=== PATIENT | female | born 1950 | race American Indian/Alaskan Native ===

== ENCOUNTER 2019-01-16 10:09 | Emergency (ER) | payer MEDICARE ==
[2019-01-16 10:19] VITALS: BP 167/87
[2019-01-16] MEDS ORDERED: IBUPROFEN 400 MG TAB PO ONE (10:50)
[2019-01-16] MEDS ORDERED: ACETAMINOPHEN 500 MG TAB PO ONE (10:50)
--- NOTE | 2019-01-16 11:26 | Emergency Department Report ---
ED General Adult HPI - General Chief complaint: Extremity Injury, Lower Stated complaint: LFT LEG PAIN Time Seen by Provider: 01/16/19 10:35 Source: patient, EMS Mode of arrival: Ambulatory Limitations: No Limitations - History of Present Illness Initial comments: She is a 68-year-old female with poor hygiene who presents with left knee pain after a piece of her ceiling fell PATIENT STATES THE PAIN IS A 4 OUT OF 10 AN ACHY TYPE OF PAIN STANDING ON IT MAKES IT WORSE NOTHING MAKES IT BETTER. PATIENT STATES THAT SHE IS NOT HAVING ANY OTHER SYMPTOMS OR COMPLAINTS. Severity scale (0 -10): 4 - Related Data Previous Rx's Medication Instructions Recorded Last Taken Type Acetaminophen [Acetaminophen TAB] 500 mg PO Q6HR #30 tablet 01/16/19 Unknown Rx Allergies Allergy/AdvReac Type Severity Reaction Status Date / Time No Known Allergies Allergy Unverified 01/16/19 10:10 ED Review of Systems ROS: Stated complaint: LFT LEG PAIN Other details as noted in HPI Constitutional: denies: chills, fever Eyes: denies: eye pain, eye discharge, vision change ENT: denies: ear pain, throat pain Respiratory: denies: cough, shortness of breath, wheezing Cardiovascular: denies: chest pain, palpitations Endocrine: no symptoms reported Gastrointestinal: denies: abdominal pain, nausea, diarrhea Genitourinary: denies: urgency, dysuria, discharge Musculoskeletal: denies: back pain, joint swelling, arthralgia Skin: denies: rash, lesions Neurological: denies: headache, weakness, paresthesias Psychiatric: denies: anxiety, depression Hematological/Lymphatic: denies: easy bleeding, easy bruising ED Past Medical Hx - Past Medical History Hx Hypertension: Yes Hx Diabetes: Yes - Surgical History Past Surgical History?: No - Social History Smoking Status: Heavy Tobacco Smoker Substance Use Type: Alcohol - Medications Home Medications: Home Medications Medication Instructions Recorded Confirmed Last Taken Type Acetaminophen [Acetaminophen TAB] 500 mg PO Q6HR #30 tablet 01/16/19 Unknown Rx ED Physical Exam - General Limitations: No Limitations General appearance: alert, in no apparent distress - Head Head exam: Present: atraumatic, normocephalic - Eye Eye exam: Present: normal appearance - ENT ENT exam: Present: mucous membranes moist - Neck Neck exam: Present: normal inspection - Respiratory Respiratory exam: Present: normal lung sounds bilaterally. Absent: respiratory distress - Cardiovascular Cardiovascular Exam: Present: regular rate, normal rhythm. Absent: systolic murmur, diastolic murmur, rubs, gallop - GI/Abdominal GI/Abdominal exam: Present: soft, normal bowel sounds - Extremities Exam Extremities exam: Present: normal inspection - Back Exam Back exam: Present: normal inspection - Neurological Exam Neurological exam: Present: alert, oriented X3 - Psychiatric Psychiatric exam: Present: normal affect, normal mood - Skin Skin exam: Present: warm, dry, intact, normal color. Absent: rash ED Course Vital Signs 01/16/19 10:14 Temperature 97.5 F L Pulse Rate 95 H Respiratory 18 Rate Blood Pressure 167/87 O2 Sat by Pulse 96 Oximetry ED Medical Decision Making - Medical Decision Making Chief medical diagnosis: Knee contusion Differential medical diagnosis: Knee fracture, patella fracture, I will get x-ray to me and give patient Tylenol and Motrin Critical care attestation.: If time is entered above; I have spent that time in minutes in the direct care of this critically ill patient, excluding procedure time. ED Disposition Clinical Impression: Knee pain, left Qualifiers: Chronicity: acute Qualified Code(s): M25.562 - Pain in left knee Disposition: DC-01 TO HOME OR SELFCARE Is pt being admited?: No Does the pt Need Aspirin: No Instructions: Arthralgia (ED) Prescriptions: Acetaminophen [Acetaminophen TAB] 500 mg PO Q6HR #30 tablet Referrals: PRIMARY CARE, [Primary Care Provider] - 3-5 Days
--- NOTE | 2019-01-16 14:32 | XRay Report ---
LEFT KNEE, 3 VIEWS INDICATION / CLINICAL INFORMATION: knee pain. COMPARISON: None available. FINDINGS: No fracture or dislocation noted. There does appear to be some mild prepatellar soft tissue swelling. Mild degenerative changes are present. The bones are slightly demineralized. IMPRESSION: No fracture or dislocation. Mild prepatellar soft tissue edema. Signer Name: Farnaz Keenan MD Signed: 01/16/2019 2:27 PM Workstation Name: [id number]
== END 2019-01-16 13:00 | disposition home or self-care (01) ==
LOC: ED 10:09
DX: M25.562 Pain in left knee (principal); I10 Essential (primary) hypertension; E11.9 Type 2 diabetes mellitus without complications; F17.200 Nicotine dependence, unspecified, uncomplicated